=== PATIENT | male | born 1995 | race Caucasian/White ===

== ENCOUNTER 2016-06-01 00:52 | Emergency (ER) | payer OTHER ==
[2016-06-01] MEDS ORDERED: Ondansetron INJ* 2 MG/ML VIAL IV ONE (01:11)
[2016-06-01] MEDS ORDERED: NS 0.9% 1000 ML* 1,000 ML IV ONE (01:11)
--- NOTE | 2016-06-01 01:31 | ED ---
Aron Anderson Aidan, scribed for Jesse Sunshine MD on 06/01/16 at 0126 . Complex/Multi-Sys Presentation - HPI Summary HPI Summary: 21 y/o male presents to the ED with a complaint of acute, constant, moderate nausea, episodes of vomiting, and explosive episodes of diarrhea. At 1930 yesterday evening while driving to [place] from [employer], the patient became very nauseous and had to jawbone puller. Shortly after, he had a violent burst of diarrhea. He had to stop a second time to vomit and vomited several times once he arrived in [place]. He has not been able to keep down fluids. After taking a rest, when he tried to get up to go to the bathroom he blacked out. Though his nausea persisted throughout the night, he currently does not feel nauseous. Pt denies any fever. Last night, he had raw tuna for dinner and today he had an omelet. - History Of Current Complaint Chief Complaint: EDNauseaVomitDiarrh Time Seen by Provider: 06/01/16 01:01 Hx Obtained From: Patient Onset/Duration: Sudden Onset, Lasting Days, Resolved - Pt is not currently experiencing symptoms Timing: Constant - constant nausea that has resolved, Intermittent, Lasting: - intermittent episodes of explosive diarrhea and vomiting Severity Currently: None Severity Initially: Moderate Location: Negative Aggravating Factor(s): unknown, however, Pt is unable to keep fluids down ( drinking causes vomiting) Alleviating Factor(s): unknown Associated Signs And Symptoms: Positive: Nausea, Vomiting, Diarrhea. Negative: Fever - Allergies/Home Medications Allergies/Adverse Reactions: Allergies Allergy/AdvReac Type Severity Reaction Status Date / Time No Known Allergies Allergy Verified 06/01/16 01:00 PMH/Surg Hx/FS Hx/Imm Hx Infectious Disease History: No Infectious Disease History: Denies: Traveled Outside the [place] in Last 30 Days - Family History Known Family History: Positive: Hypertension - Social History Occupation: Student Lives: Alone Alcohol Use: Occasionally Substance Use Type: Reports: None Smoking Status (MU): Never Smoked Tobacco Review of Systems Constitutional: Negative Negative: Fever, Chills, Fatigue, Skin Diaphoresis Eyes: Negative ENT: Negative Cardiovascular: Negative Respiratory: Negative Positive: Vomiting, Diarrhea, Nausea. Negative: Abdominal Pain Genitourinary: Negative Musculoskeletal: Negative Skin: Negative Neurological: Negative Psychological: Normal All Other Systems Reviewed And Are Negative: Yes Physical Exam Triage Information Reviewed: Yes Vital Signs On Initial Exam: Initial Vitals Temp Pulse Resp BP Pulse Ox 97.8 F 85 16 101/65 99 06/01/16 00:55 06/01/16 00:55 06/01/16 00:55 06/01/16 00:55 06/01/16 00:55 Vital Signs Reviewed: Yes Appearance: Positive: No Pain Distress Skin: Positive: Warm Head/Face: Positive: Normal Head/Face Inspection Eyes: Positive: FERNANDO ENT: Positive: Hearing grossly normal Neck: Positive: Supple Respiratory/Lung Sounds: Positive: Breath Sounds Present Cardiovascular: Positive: RRR Abdomen Description: Positive: Nontender, Soft Bowel Sounds: Positive: Present Musculoskeletal: Positive: Strength/ROM Intact Neurological: Positive: Alert, Oriented to Person Place, Time Psychiatric: Positive: Affect/Mood Appropriate - [place] Coma Scale Coma Scale Total: 15 Diagnostics - Vital Signs Vital Signs Temp Pulse Resp BP Pulse Ox 06/01/16 00:55 97.8 F 85 16 101/65 99 - Laboratory Result Diagrams: 06/01/16 01:26 06/01/16 01:26 Lab Statement: Any lab studies that have been ordered have been reviewed, and results considered in the medical decision making process. Re-Evaluation - Re-Evaluation First Eval Change: Improved - tolerating po Complex Multi-Symp Course/Dx Course Of Treatment: 21 y/o male presents to the ED with a complaint of acute, constant, moderate nausea, episodes of vomiting, and explosive episodes of diarrhea. He is feeling better after receiving IV-fluids. He will be discharged with a diagnosis of gastroenteritis. - Diagnoses Provider Diagnoses: Gastroenteritis Discharge - Discharge Plan Condition: Stable Disposition: HOME Discharge Disposition Comment: Please follow up with your primary care physician. Patient Education Materials: Gastroenteritis (ED) Referrals: Non Staff,Doctor [Primary Care Provider] - The documentation as recorded by the Aron dumas Aidan accurately reflects the service I personally performed and the decisions made by me, Jesse Sunshine MD.
[2016-06-01 01:36] LABS: Hematocrit 48 % (42-52); Hemoglobin 15.6 g/dl (14.0-18.0); Mean Corpuscular HGB Conc 32 g/dl (31-36); Mean Corpuscular Hemoglobin 27 pg (27-31); Mean Corpuscular Volume 84 fL (80-94); Mean Platelet Volume 9 um3 (7.4-10.4); Red Blood Count 5.75 10^6/ul (4.0-5.4); Red Cell Distribution Width 13 % (10.5-15)
[2016-06-01 01:51] LABS: Albumin 4.9 g/dL (3.2-5.2); BUN/Creatinine Ratio 18.8 (8-20); Calcium 9.6 mg/dL (8.6-10.3); EGFR African American 102.2 (>60); EGFR Non-African American 79.5 (>60); Globulin 2.8 g/dL (2-4); Potassium 4.3 mmol/L (3.5-5.0); Total Bilirubin 0.9 mg/dL (0.2-1.0); Total Protein 7.7 g/dL (6.4-8.9)
[2016-06-01 03:10] VITALS: BP 120/72
== END 2016-06-01 03:08 | disposition home or self-care (01) ==
LOC: ED 00:52
DX: K52.9 Noninfective gastroenteritis and colitis, unspecified (principal); R11.2 Nausea with vomiting, unspecified; R19.7 Diarrhea, unspecified
CPT/HCPCS: 36415; 80053; 85025; 96374; 96375; 99282; J2405